=== PATIENT | female | born 1980 | race American Indian/Alaskan Native ===

== ENCOUNTER 2017-04-05 23:27 | Emergency (ER) | payer SELFPAY ==
[2017-04-05 23:56] VITALS: BP 164/119
[2017-04-06] MEDS ORDERED: APRESOLINE PO ONE (00:01)
--- NOTE | 2017-04-06 00:20 | XRay Report ---
FINAL REPORT EXAM: XR CHEST ROUTINE 2V HISTORY: Shortness of breath. TECHNIQUE: Frontal and lateral radiographs of the chest were obtained. No prior studies are available for comparison. FINDINGS: The lateral radiograph is somewhat limited due to low lung volumes, patient body habitus, and slight motion artifact. The cardiac silhouette and mediastinum are within normal limits. The pulmonary vasculature is within normal limits. The lungs are clear bilaterally, without focal infiltrate or effusion. There is no pneumothorax. No significant osseous abnormalities are identified. IMPRESSION: No active disease seen in the chest. Somewhat limited lateral radiograph.
[2017-04-06 00:43] LABS: Basophils % (Auto) 0.9 % (0.0-1.8); Eosinophils % (Auto) 0.4 % (0.0-4.3); Hematocrit 40.3 % (30.3-42.9); Hemoglobin 12.9 gm/dl (10.1-14.3); Mean Corpuscular HGB Conc 32 % (30-34); Mean Corpuscular Hemoglobin 27 pg (28-32); Mean Corpuscular Volume 85 fl (79-97); Platelet Count 343 K/mm3 (140-440); Red Blood Count 4.73 M/mm3 (3.65-5.03); Red Cell Distribution Width 16.2 % (13.2-15.2)
[2017-04-06 00:47] LABS: Anion Gap 20 mmol/L; BUN/Creatinine Ratio 11.11; Blood Urea Nitrogen 10 mg/dL (7-17); Calcium 9.1 mg/dL (8.4-10.2); Carbon Dioxide 22 mmol/L (22-30); Chloride 96.7 mmol/L (98-107); Glucose 187 mg/dL (65-100); Potassium 3.8 mmol/L (3.6-5.0); Sodium 135 mmol/L (137-145)
--- NOTE | 2017-04-08 09:27 | ED Elopement Review ---
ED Pt Elopement review - Results review Lab results: Laboratory Tests 04/06/17 04/06/17 04/06/17 00:10 00:10 00:10 WBC 13.0 H RBC 4.73 Hgb 12.9 Hct 40.3 MCV 85 MCH 27 L MCHC 32 RDW 16.2 H Plt Count 343 Lymph % (Auto) 21.2 [place] % (Auto) 5.6 Eos % (Auto) 0.4 Baso % (Auto) 0.9 Lymph # 2.8 [place] # 0.7 Eos # 0.1 Baso # 0.1 Seg Neutrophils % 71.9 H Seg Neutrophils # 9.4 H D-Dimer 346.20 H Sodium 135 L Potassium 3.8 Chloride 96.7 L Carbon Dioxide 22 Anion Gap 20 BUN 10 Creatinine 0.9 Estimated GFR > 60 BUN/Creatinine Ratio 11.11 Glucose 187 H Calcium 9.1 Troponin T < 0.010 - Call Back decision Pt Call Back Decision: Call pt to return to ED [facility] (due to elevated D-dimer)
== END 2017-04-06 01:30 | disposition left against medical advice (07) ==
LOC: ED 23:27
DX: R07.9 Chest pain, unspecified (principal); Z53.21 Procedure and treatment not carried out due to patient leaving prior to being seen by health care provider
CPT/HCPCS: 36415; 71020; 80048; 84484; 85025; 85379; 93005; 93010

== ENCOUNTER 2017-04-15 15:38 | Emergency (ER) | payer SELFPAY | END 2017-04-15 16:00 | disposition left against medical advice (07) | LOC: ED 15:38 | DX: R07.9 Chest pain, unspecified (principal); Z53.21 Procedure and treatment not carried out due to patient leaving prior to being seen by health care provider ==